=== PATIENT | male | born 1990 | race African-American/Black ===

== ENCOUNTER 2018-06-09 14:10 | Emergency (ER) | payer MEDICAID, OTHER ==
[~2018-06-09] VITALS: Ht 185.4 cm; Wt 78.0 kg
[2018-06-09] MEDS ORDERED: IPRATROPIUM/ALBUTEROL 0.5-3(2.5)MG/3ML NEB HHN ONE (15:30)
[2018-06-09] MEDS ORDERED: DEXAMETHASONE 4MG/ML 1ML VIAL IV ONE (15:30)
[2018-06-09 16:03] VITALS: BP 128/89
== END 2018-06-09 16:05 | disposition home or self-care (01) ==
LOC: ER 14:27
DX: J45.901 Unspecified asthma with (acute) exacerbation (principal); H10.13 Acute atopic conjunctivitis, bilateral; J30.9 Allergic rhinitis, unspecified; F17.200 Nicotine dependence, unspecified, uncomplicated; F12.10 Cannabis abuse, uncomplicated
CPT/HCPCS: 96374; 99283; J1100; J7620

== ENCOUNTER 2018-07-25 11:25 | Emergency (ER) | payer MEDICAID ==
[~2018-07-25] VITALS: Ht 188 cm; Wt 85.0 kg
[2018-07-25] MEDS ORDERED: ALBUTEROL (0.5%) 2.5MG/0.5ML NEB HHN ONE (12:15)
[2018-07-25] MEDS ORDERED: PREDNISONE 20MG TABLET PO ONE (12:15)
[2018-07-25] MEDS ORDERED: ALBUTEROL (0.083%) 2.5MG/3ML NEB ONE (12:26)
[2018-07-25 13:04] VITALS: BP 106/68
== END 2018-07-25 13:07 | disposition home or self-care (01) ==
LOC: ER 11:25
DX: J45.901 Unspecified asthma with (acute) exacerbation (principal); F17.200 Nicotine dependence, unspecified, uncomplicated; F12.10 Cannabis abuse, uncomplicated; Z91.013 Allergy to seafood
CPT/HCPCS: 94640; 99283; 99406; J7512; J7611; Z7610

== ENCOUNTER 2020-08-04 05:53 | Emergency (ER) | payer MEDICAID ==
[~2020-08-04] VITALS: Ht 185.4 cm; Wt 78.0 kg
[2020-08-04] MEDS ORDERED: ALBU6.7H9 INH (06:10)
[2020-08-04] MEDS ORDERED: P50 PO (06:10)
[2020-08-04 06:15] VITALS: BP 125/72
== END 2020-08-04 06:28 | disposition home or self-care (01) ==
LOC: ER 05:53
DX: J45.901 Unspecified asthma with (acute) exacerbation (principal); F12.10 Cannabis abuse, uncomplicated; Z91.013 Allergy to seafood
CPT/HCPCS: 93005; 99283

== ENCOUNTER 2020-12-01 09:20 | Emergency (ER) | payer MEDICAID ==
[~2020-12-01] VITALS: Ht 175.3 cm; Wt 66.0 kg
[~2020-12-01 09:20] MED LIST: ALBU6.7H9 INH; P50 PO
[2020-12-01] MEDS ORDERED: ALBUTEROL (0.083%) 2.5MG/3ML NEB HHN STA (09:43)
[2020-12-01] MEDS ORDERED: ALBU6.7H9 INH (11:39)
[2020-12-01] MEDS ORDERED: P50 MT (11:39)
[2020-12-01 11:42] VITALS: BP 144/96
== END 2020-12-01 12:00 | disposition home or self-care (01) ==
LOC: ER 09:44
DX: J45.901 Unspecified asthma with (acute) exacerbation (principal); F12.10 Cannabis abuse, uncomplicated; Z91.013 Allergy to seafood
CPT/HCPCS: 71045; 94640; 99283; Z7610